=== PATIENT | male | born 1970 | race Caucasian/White ===

== ENCOUNTER 2017-04-22 21:26 | Emergency (ER) | payer MEDICAID ==
[~2017-04-22] VITALS: Ht 172.7 cm; Wt 79.0 kg
[~2017-04-22 21:26] MED LIST: ALBU8.5H3 INH; AMO500 PO; PRED20TA PO
[2017-04-22 21:36] VITALS: Ht 172.7 cm; Wt 79.0 kg
[2017-04-22] MEDS ORDERED: IBUPROFEN 600 MG TAB PO ONE (23:00)
--- NOTE | 2017-04-22 23:17 | ERD ---
ER Documentation Chief Complaint Date/Time DATE: 04/22/17 TIME: 23:16 Chief Complaint right hand pain x 4 days HPI 46 year old male comes in with right radial wrist pain after a fall onto an outstretched hand 4 days ago. He relates achy pain in the radial wrist, nonradiating, moderate, worse with movement better at rest. He denies paresthesias or weakness or other injuries. ROS All systems reviewed and are negative except as per history of present illness. Medications Home Meds Active Scripts Ibuprofen* (Motrin*) 600 Mg Tab, 600 MG PO Q6, #30 TAB Prov:JUAN LINCOLN PA-C 04/23/17 Amoxicillin* (Amoxicillin*) 500 Mg Cap, 500 MG PO TID for 10 Days, CAP Prov:RYAN CHAVEZ DO 11/06/15 Prednisone* (Prednisone*) 20 Mg Tab, 40 MG PO DAILY for 5 Days, TAB Prov:RYAN CHAVEZ DO 11/06/15 Albuterol Sulfate* (Proair HFA*) 8.5 Gm Hfa.aer.ad, 2 PUFF INH Q4H Y for WHEEZING AND SOB, #1 INHALER Prov:KATHY,RYAN DO 11/06/15 Allergies Allergies: Coded Allergies: No Known Allergy (Verified , 10/12/13) PMhx/Soc Medical and Surgical Hx: pt denies Medical Hx, pt denies Surgical Hx History of Surgery: No Anesthesia Reaction: No Hx Neurological Disorder: No Hx Respiratory Disorders: No Hx Cardiac Disorders: No Hx Psychiatric Problems: No Hx Miscellaneous Medical Probl: No Hx Alcohol Use: No Hx Substance Use: No Hx Tobacco Use: No Physical Exam Vitals Vital Signs Date Time Temp Pulse Resp B/P Pulse Ox O2 Delivery O2 Flow Rate FiO2 04/22/17 21:36 98.3 79 20 110/59 100 Physical Exam General: Well-developed, well-nourished. The patient appears in no acute distress. HEENT: Head is normocephalic, atraumatic. No scleral icterus. Neck: Supple. Nontender. Lungs: Clear to auscultation. Normal air movement. Heart: Regular rate and rhythm. S1 and S2 are normal. No murmurs, gallops, or rubs. Abdomen: Nondistended. Extremities: Dorsal radial wrist pain, no bony deformities, no snuffbox tenderness, capillary refill less than 2 seconds, patient is able to make a thumbs up and okay sign. Neurologic: Alert and oriented 3. No focal deficits. Normal speech and gait. Skin: Normal turgor. No rash or lesions. Results 24 hrs Current Medications Medications (Trade) Dose Ordered Sig/Dariela Route PRN Reason Start Time Stop Time Status Last Admin Dose Admin Ibuprofen (Motrin) 600 mg ONCE ONCE PO 04/22/17 23:00 04/22/17 23:01 DC 04/22/17 22:55 DIAGNOSTIC IMAGING REPORT Patient: CAITLYN MENON : 1970 Age: 46 Sex: M MR #: [id number] DOS: 04/22/17 2244 Ordering MD: JUAN LINCOLN PA-C Location: [facility] Room/Bed: PROCEDURE: XR wrist. CLINICAL INDICATION: Trauma. TECHNIQUE: AP, lateral and oblique views of the right wrist was obtained. COMPARISON: There are no similar studies submitted for comparison. FINDINGS: There is no acute fracture or dislocation. No destructive osseous lesions are seen. The joint spaces are unremarkable. IMPRESSION: No acute fracture or dislocation. RPTAT: HIKT .Juan C Johnson MD, MD Date Time Electronically viewed and signed by .Juan C Johnson MD, MD on 04/23/2017 00:25 .T/ CC: JUAN LINCOLN PA-C Procedures/MDM ED course: He was given ibuprofen for pain, x-rays of the right wrist are obtained. Patient's right wrist was placed in a Velcro wrist splint. Splint Assessment: Neurovascularly intact post splint placement with good fit. Medical decision makin-year-old male comes in status post fall complains of right wrist pain, no evidence of fracture. Patient's examination shows no soft box tenderness, and no neurovascular injury. X-rays are unremarkable, he was placed in a Velcro wrist splint and advised to take ibuprofen for his pain. Departure Diagnosis: Primary Impression: Wrist sprain Condition: Good JUAN LINCOLN PA-C Apr 22, 2017 23:17
--- NOTE | 2017-04-23 00:26 | RADRPT ---
PROCEDURE: XR wrist. CLINICAL INDICATION: Trauma. TECHNIQUE: AP, lateral and oblique views of the right wrist was obtained. COMPARISON: There are no similar studies submitted for comparison. FINDINGS: There is no acute fracture or dislocation. No destructive osseous lesions are seen. The joint spaces are unremarkable. IMPRESSION: No acute fracture or dislocation. RPTAT: HIKT .Juan C Johnson MD, MD Date Time Electronically viewed and signed by .Juan C Johnson MD, on 04/23/2017 00:25 .T/
[2017-04-23] MEDS ORDERED: IBUP-1542 PO (00:32)
== END 2017-04-23 00:59 | disposition home or self-care (01) ==
LOC: FTE 21:26
DX: S63.501A Unspecified sprain of right wrist, initial encounter (principal); W18.39XA Other fall on same level, initial encounter; Y92.9 Unspecified place or not applicable
CPT/HCPCS: 29125; 73110; Z7502; Z7610

== ENCOUNTER 2017-10-24 09:46 | Emergency (ER) | END 2017-10-24 11:35 | disposition home or self-care (01) ==

== ENCOUNTER 2017-11-03 09:05 | Emergency (ER) | END 2017-11-03 13:07 | disposition home or self-care (01) ==